=== PATIENT | female | born 1950 | race Caucasian/White ===

== ENCOUNTER 2024-07-31 05:26 | Day surgery (SDC) | payer OTHER ==
[2024-07-29 14:12] VITALS: BP 130/79
[~2024-07-31] VITALS: Ht 147.3 cm; Wt 54.4 kg
[~2024-07-31 05:26] MED LIST: AMLODIPINE-OLM1 EAC2 PO; CALTRATE PO; COZAAR100 MG PO; MAGNESIUM400 MG; PROAIR RESPICL90 MCG IH; PROTONIX40 MG PO; QVAR REDIHALE10.6 GM; TRAZODONE HCL50 MG PO; WELBUTRIN; ZIRTEC; [UNRECOGNIZED DRUG - OTHER] PO
[2024-07-31] MEDS ORDERED: BUPIVACAINE LIPOSOME/PF 266 MG/20 ML VIAL IJ ONE (07:30)
[2024-07-31] MEDS ORDERED: DIBUCAINE 30 GM TUBE RECTAL ONE (07:30)
[2024-07-31] MEDS ORDERED: POVIDONE-IODINE 118 ML BOTT TOP ONE (07:30)
[2024-07-31] MEDS ORDERED: BUPIVACAINE HCL 30 ML VIAL IJ ONE (07:30)
[2024-07-31] MEDS ORDERED: CEFTRIAXONE SODIUM 2,000 MG VIAL IV ONE (07:30)
[2024-07-31] MEDS ORDERED: METRONIDAZOLE/SODIUM CHLORIDE 500 MG/100 ML PIGGYBACK IV ONE (07:30)
[2024-07-31] MEDS ORDERED: HEMOSTATIC MATRIX 1 KIT KIT TOP ONE (07:30)
[2024-07-31] MEDS ORDERED: COLACE100 MG PO (09:09)
[2024-07-31] MEDS ORDERED: TRAM1TAB98 PO (09:09)
[2024-07-31] MEDS ORDERED: NEURONTIN300 MG PO (09:09)
== END 2024-07-31 12:45 | disposition home or self-care (01) ==
LOC: CIR.AMB 05:26
PROVIDERS: ATTEND Surgery
DX: K64.4 Residual hemorrhoidal skin tags (principal); K64.5 Perianal venous thrombosis; K64.8 Other hemorrhoids